=== PATIENT | female | born 1990 | race Caucasian/White ===

== ENCOUNTER 2019-10-11 04:21 | Emergency (ER) | payer OTHER ==
[~2019-10-11] VITALS: Ht 172 cm; Wt 74.3 kg
[~2019-10-11 04:21] MED LIST: HYDROmorphone 2 MG/ML VIAL (DILAUDID) ONE
[2019-10-11] MEDS ORDERED: KETAMINE/NaCl 50 MG/5 ML SYRINGE (ED ONLY) ONE ×2 (04:37→04:51)
[2019-10-11] MEDS ORDERED: MIDAZOLAM 5 MG/5 ML (VERSED) VIAL ONE (04:47)
[2019-10-11] MEDS ORDERED: LIDOCAINE 1% INJ 20 ML 20 ML VIAL ONE (04:47)
[2019-10-11] MEDS ORDERED: HYDROmorphone 2 MG/ML VIAL (DILAUDID) ONE (04:48)
[2019-10-11] MEDS ORDERED: HYDROmorphone 2 MG/ML VIAL (DILAUDID) IV ONE ×3 (04:50→05:55)
[2019-10-11] MEDS ORDERED: KETAMINE HCL 100 MG/ML 5 ML VIAL ONE (05:05)
[2019-10-11] MEDS ORDERED: TETANUS,DIPTH,PERTUSS P/F (BOOSTRIX) 0.5 ML VIAL IM ONE (05:11)
[2019-10-11] MEDS ORDERED: WATER (STERILE) FOR INJECTION 10 ML ONE (05:11)
[2019-10-11] MEDS ORDERED: ceFAZolin INJECTION 1,000 MG ONE (05:11)
[2019-10-11 05:25] LABS: BASOPHILS % (AUTO) 0 % (0-10); EOSINOPHILS # (AUTO) 0.1 10^3/uL (0.0-0.3); EOSINOPHILS % (AUTO) 2 % (0-10); HEMATOCRIT 37 % (35-52); HEMOGLOBIN 12.3 G/DL (11.5-16.0); LYMPHOCYTES # (AUTO) 2.2 X 10^3 (1.0-4.0); LYMPHOCYTES % (AUTO) 29 % (12-44); MEAN CORPUSCULAR HEMOGLOBIN 28 PG (25-34); MEAN CORPUSCULAR HGB CONC 33 G/DL (32-36); MEAN CORPUSCULAR VOLUME 83 FL (80-99); MEAN PLATELET VOLUME 12.3 FL (7.4-10.4); MONOCYTES # (AUTO) 0.5 X 10^3 (0.0-1.0); MONOCYTES % (AUTO) 7 % (0-12); NEUTROPHILS # (AUTO) 4.6 X 10^3 (1.8-7.8); NEUTROPHILS % (AUTO) 62 % (42-75); PLATELET COUNT 219 10^3/uL (130-400); RED CELL DISTRIBUTION WIDTH 13.7 % (10.0-14.5); WHITE BLOOD COUNT 7.4 10^3/uL (4.3-11.0)
[2019-10-11] MEDS ORDERED: LACTATED RINGERS 1,000 ML IV ONE (05:28)
[2019-10-11 05:30] LABS: ALBUMIN 4.5 GM/DL (3.2-4.5); CHLORIDE 109 MMOL/L (98-107); POTASSIUM 3.4 MMOL/L (3.6-5.0)
[2019-10-11 05:31] LABS: SODIUM 140 MMOL/L (135-145)
[2019-10-11 05:33] LABS: GLUCOSE 107 MG/DL (70-105); TOTAL PROTEIN 7.6 GM/DL (6.4-8.2)
[2019-10-11 05:34] LABS: CARBON DIOXIDE 19 MMOL/L (21-32)
[2019-10-11 05:35] LABS: BILIRUBIN,TOTAL 0.3 MG/DL (0.1-1.0)
[2019-10-11 05:36] LABS: ALKALINE PHOSPHATASE 57 U/L (40-136)
[2019-10-11 05:37] LABS: CREATININE SERUM 0.76 MG/DL (0.60-1.30); GFR ESTIMATED > 60
[2019-10-11 05:38] LABS: BUN/CREATININE RATIO 22
[2019-10-11 05:39] LABS: ALANINE AMINOTRANSFERASE 19 U/L (0-55)
--- NOTE | 2019-10-11 06:17 | ED Upper Extremity ---
General Chief Complaint: Trauma-Non Activation Stated Complaint: MULTIPLE FINGER AMPUTATIONS Nursing Triage Note: Pt to [facility] 2 via [facility] from work with trauma to last 3 fingers of left hand. EMS reports c/o pt getting last 3 fingers caught in machinery while working. Dressing applied on arrival. 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 She has a total limitation of the fifth digit in the intermediate phalanx and a near total amputation of the fourth digit intermediate phalanx. The third digit has s everal lacerations and subcutaneous tissue. Bleeding is being controlled with direct pressure by EMS. Patient is in significant amount pain. EMS reports that given 5 of morphine and 100 g of fentanyl. We have an IV and some fluids started. Vital signs are acceptable. Patient was tested last week for COVID-19 and was negative. She was asymptomatic at that time as well as now. She has no significant medical or surgical history. She denies being sexually active. She's not on any control. Allergies and Home Medications Allergies Coded Allergies: No Known Drug Allergies (Unverified , 10/11/19) Home Medications Cephalexin 500 Mg Capsule, 500 MG PO QID Prescribed by: GEORGINA CRUZ on 10/11/19 0702 Hydrocodone/Acetaminophen 1 Each Tablet, 0.5-1 EACH PO Q4H PRN for PAIN-SEVERE (8-10) Prescribed by: GEORGINA CRUZ on 10/11/19 0702 Patient Home Medication List Home Medication List Reviewed: Yes Review of Systems Constitutional: No chills, No diaphoresis EENTM: No ear discharge, No ear pain Respiratory: No cough, No short of breath Cardiovascular: No chest pain, No palpitations Gastrointestinal: No abdominal pain Genitourinary: No discharge, No dysuria : No Control/STD Prophylaxis: None Musculoskeletal: see HPI; No back pain; joint pain Skin: No pruritus, No rash All Other Systems Reviewed Negative Unless Noted: Yes Past Caikkoq-Ldabfl-Xqogkk Hx Patient Social History Alcohol Use: Rarely Uses Recreational Drug Use: No Smoking Status: Never a Smoker 2nd Hand Smoke Exposure: No Recent Foreign Travel: No Contact w/Someone Who Travel: No Recent Infectious Disease Expo: No Recent Hopitalizations: No Seasonal Allergies Seasonal Allergies: No Past Medical History Surgeries: No Respiratory: No Cardiac: No Neurological: No Genitourinary: No Gastrointestinal: No Musculoskeletal: No Endocrine: No HEENT: No Cancer: No Psychosocial: No Integumentary: No Blood Disorders: No Physical Exam Vital Signs Vital Signs - First Documented 10/11/19 10/11/19 04:22 04:36 Temp 37.2 Pulse 127 Resp 22 B/P (MAP) 134/93 (107) Pulse Ox 98 O2 Delivery Room Air O2 Flow Rate 2.00 Capillary Refill : Less Than 3 Seconds Height, Weight, BMI Height: '" Weight: lbs. oz. kg; 25.00 BMI Method: General Appearance: WD/WN, severe distress HEENT: PERRL/EOMI, pharynx normal Neck: full range of motion, supple, normal inspection Cardiovascular: normal peripheral pulses, regular rate, rhythm, no edema Respiratory: lungs clear, normal breath sounds, no respiratory distress, no accessory muscle use Shoulder: normal inspection, non-tender, no evidence of injury, normal ROM Elbow/Forearm: normal inspection, non-tender, no evidence of injury, normal ROM, Bilateral Wrist: Yes normal inspection, Yes non-tender, Yes no evidence of injury, Yes normal ROM Hand: Left (amputation of the fifth digit intermediate phalanx. Amputation near-complete fourth digit intermediate phalanx. Crush injury to her distal fourth digit. Crush injury with multiple lacerations palmar and dorsal third digit with dusky blue coloration and slow capillary refill to the distal portion of the third digit. Second digit with distal tip amputation just up to the fingernail but not involving the nail bed. Second digit laceration approximately 1 x 1 cm round.) Neurologic/Tendon: sensory deficit (decreased sensation to third digit distal phalanx. Pain intact.), other (decreased movement of third digit related to pain or injuries unclear. First and second digit move independently.) Neurologic/Psychiatric: alert, oriented x 3 Skin: cyanosis (third digit left hand intermediate and distal phalanx.) Procedures/Interventions Wound Location: Upper Extremities Other Wound Location Left hand seconds her fifth digits Wound's Depth, Shape: linear (avulsion to the tip of the index finger and amputation middle of the middle phalanx fourth and fifth digit), irregular (lacerations on the third finger), contused tissue, sub Q Wound Explored: no foreign body removed Irrigated w/ Saline (ccs): 1500 Betadine Prep?: Yes (as well as chlorhexidine) Anesthesia: 1% Lidocaine Volume Anesthetic (ccs): 12 Wound Debrided: moderate Suture: Prolene Suture Size: 4-0 Number of Sutures: 27 Layer Closure?: 1 Sterile Dressing Applied?: Yes Progress Wounds were thoroughly inspected cleaned and flushed with sterile saline and then rinsed with chlorhexidine and sterile saline and finally again with sterile saline. Before we started we saturated the wounds in Betadine and let them set for about 10 minutes. Digital blocks were applied using the usual fashion on digits 2 through 5 of the left hand 1% lidocaine without epinephrine. When the patient had good anesthesia we proceeded to close the lacerations of the third digit after carefully flushing each wound with sterile saline. Simple interrupted sutures were used. Using a Rongeur we trimmed back the middle phalanx of the fourth and fifth digit as well as the distal phalanx of the first digit so we could close the skin as best possible while continuously irrigating with sterile saline. Conscious sedation was used for pain control. Patient tolerated procedure well. Progress/Results/Core Measures Results/Orders Lab Results Laboratory Tests Test 10/11/19 04:25 Range/Units White Blood Count 7.4 4.3-11.0 10^3/uL Red Blood Count 4.42 4.35-5.85 10^6/uL Hemoglobin 12.3 11.5-16.0 G/DL Hematocrit 37 35-52 % Mean Corpuscular Volume 83 80-99 FL Mean Corpuscular Hemoglobin 28 25-34 PG Mean Corpuscular Hemoglobin Concent 33 32-36 G/DL Red Cell Distribution Width 13.7 10.0-14.5 % Platelet Count 219 130-400 10^3/uL Mean Platelet Volume 12.3 H 7.4-10.4 FL Neutrophils (%) (Auto) 62 42-75 % Lymphocytes (%) (Auto) 29 12-44 % Monocytes (%) (Auto) 7 0-12 % Eosinophils (%) (Auto) 2 0-10 % Basophils (%) (Auto) 0 0-10 % Neutrophils # (Auto) 4.6 1.8-7.8 X 10^3 Lymphocytes # (Auto) 2.2 1.0-4.0 X 10^3 Monocytes # (Auto) 0.5 0.0-1.0 X 10^3 Eosinophils # (Auto) 0.1 0.0-0.3 10^3/uL Basophils # (Auto) 0.0 0.0-0.1 10^3/uL Sodium Level 140 135-145 MMOL/L Potassium Level 3.4 L 3.6-5.0 MMOL/L Chloride Level 109 H 98-107 MMOL/L Carbon Dioxide Level 19 L 21-32 MMOL/L Anion Gap 12 5-14 MMOL/L Blood Urea Nitrogen 17 7-18 MG/DL Creatinine 0.76 0.60-1.30 MG/DL Estimat Glomerular Filtration Rate > 60 BUN/Creatinine Ratio 22 Glucose Level 107 H 70-105 MG/DL Calcium Level 9.0 8.5-10.1 MG/DL Corrected Calcium 8.6 8.5-10.1 MG/DL Total Bilirubin 0.3 0.1-1.0 MG/DL Aspartate Amino Transf (AST/SGOT) 21 5-34 U/L Alanine Aminotransferase (ALT/SGPT) 19 0-55 U/L Alkaline Phosphatase 57 40-136 U/L Total Protein 7.6 6.4-8.2 GM/DL Albumin 4.5 3.2-4.5 GM/DL Serum Test, Qualitative NEGATIVE NEGATIVE My Orders Orders - GEORGINA CRUZ Ketamine Syringe (Ed Only) (Ketamine Syr (10/11/19 04:37) Hand, Left, 3 Views (10/11/19 ) Midazolam Injection (Versed Injection) (10/11/19 04:47) Lidocaine 1% Inj 20 Ml (Xylocaine 1% Inj (10/11/19 04:47) Hydromorphone Injection (Dilaudid Inject (10/11/19 04:48) Ketamine Syringe (Ed Only) (Ketamine Syr (10/11/19 04:51) Ketamine Injection (Ketalar Injection) (10/11/19 05:05) Cefazolin Injection (Ancef Injection) (10/11/19 05:11) Dipht,Pertuss(Acell),Tet Adult (Boostrix (10/11/19 05:11) Water (Sterile) For Injection (Sterile W (10/11/19 05:11) Cbc With Automated Diff (10/11/19 05:18) Comprehensive Metabolic Panel (10/11/19 05:18) Hcg,Qualitative Serum (10/11/19 05:18) Lactated Ringers (Lr 1000 Ml Iv Solution (10/11/19 05:28) Hydrocodone/Apap 10/325 Tablet (Lortab 1 (10/11/19 06:50) Hydrocodone/Apap 10/325 Tablet (Lortab 1 (10/11/19 07:00) Hydromorphone Injection (Dilaudid Inject (10/11/19 04:50) Hydromorphone Injection (Dilaudid Inject (10/11/19 04:57) Hydromorphone Injection (Dilaudid Inject (10/11/19 05:55) Hydromorphone Injection (Dilaudid Inject (10/11/19 04:21) Vital Signs/I&O 10/11/19 08:25 Pulse 83 Resp 15 B/P (MAP) 109/54 Pulse Ox 100 Blood Pressure Mean: 107 Progress Progress Note : Time: 06:55 Progress Note Labs are largely unremarkable. Patient's beginning to wake up more and having some increasing pain so 10 mg of hydrocodone was ordered by mouth. While sewing up the third digit and even after closing the wounds the distal phalanx still has a dusky color with a prolonged capillary refill. This is no change from its presentation. Patient does have sensation of pain in this finger. Referral to occupational health made. Diagnostic Imaging Diagonstic Imaging: Xray Plain Films/CT/US/NM/MRI: hand (3v) Comments NAME: MATEO DELUCA MED REC#: [id number] PT STATUS: REG ER : 1990 PHYSICIAN: GEORGINA CRUZ MD ADMIT DATE: 10/11/19/ER Draft Date of Exam:10/11/19 HAND, LEFT, 3 VIEWS INDICATION: Crush injury with amputation. FINDINGS: There is a traumatic amputation of the 4th and 5th fingers along the middle phalanx. Distal 5th digit is not present. The 4th digit does remain intact with some soft tissue. The DIP joint and PIP joint appear intact. Remainder of the hand appears normal. IMPRESSION: Traumatic amputation of the 4th and 5th distal fingers as described. Dictated on workstation # [id number] Dict: 10/11/19 0646 Trans: 10/11/19 0647 CV [id number] Interpreted by: BRYAN SIDHU MD Electronically signed by: Reviewed: Reviewed by Me Critical Care Note Critical Care Start Time: 04:20 Stop Time: 06:00 Total Time (minutes) 100 mins Progress Patient presented in significant amount pain despite 5 mg morphine in the 100 mg and also we elected to use Dilaudid 1 mg at a time in addition to 50 mg aliquots of ketamine to control her pain. Finally 2 mg of Versed were sufficient to achieve good conscious sedation, analgesia, and amnesia. Respiratory therapy, warehouse trainer were summonsed. X-ray was summonsed. X-ray of the left hand reviews are being obtained. 0425 with her labs and continued a liter of saline at flush. Called and spoke to Dr. Odonnell orthopedic surgeon on-call and he agreed with plan to remove the nonviable fourth digit portion since the intermediate phalanx was powdered and there is significant evidence of crush injury to the distal finger. This is wrapped in gauze and sent to pathology for gross. After closing the wounds the plan is to follow-up with Dr. Odonnell in the clinic in the next couple days. 0 427 end-tidal CO2 was established showing 44 cm water pressure. 0 428 1 mg of Dilaudid IV was given. 86022 mg of Dilaudid was given. Wounds are being cleaned and prepped. 0442 50 mg of ketamine IV administered. 18567 mg of Versed and 1 mg of Dilaudid IV were given. 0455 50 mg of ketamine were given to complete sedation. Wounds are being sutured. fashion supervisor had to go to the OR to find a Rongeur. 0457 1 mg of Dilaudid was given. 0458 individual digital blocks of digits 2 through 5 on the left hand were administered using 1% lidocaine without epinephrine 12 mL total. 0511 50 mg ketamine was administered. Rongeur Obtained and used to clean up the bone in so that the skin. We reapproximated over the stumps and closed using 4-0 Prolene. 0518 tetanus was administered IM right deltoid 0522 1 g Ancef administered IV. 0529 50 milligrams of ketamine administered IV. 2 mg of Versed administered IV. 0 533 patient had some snoring and her end-tidal CO2 was 44 cm water pressure. Her head was adjusted to open her airway and a nasopharyngeal airway was placed. Liter of saline and completed. Blood pressure was good. A second liter of lactated Ringer's was ran around 200 cc per hour. 0555 1 mg of Dilaudid administered IV. 0557 25 milligrams ketamine administered IV. Vital signs normal with end-tidal CO2 of 49 cm of water pressure. 0630: Patient was beginning to wake up and were going to transition to oral pain medications. IV fluids were discontinued. Nasopharyngeal airway was discontinued. Mom and dad arrived patient gave permission for me to speak to them as well as bring him back so we explained the situation using the language line radio assembler. We also discussed the case with the patient and answered all questions appropriately. Departure Impression Primary Impression: Crushing injury of finger(s) Additional Impressions: Amputation, finger, traumatic Qualified Codes: S68.119A - Complete traumatic metacarpophalangeal amputation of unspecified finger, initial encounter Laceration of finger of left hand without damage to nail Qualified Codes: S61.213A - Laceration without foreign body of left middle finger without damage to nail, initial encounter Disposition: 01 HOME, SELF-CARE Condition: Improved Departure-Patient Inst. Decision time for Depature: 07:15 Referrals: UNKNOWN (PCP) Primary Care Physician VANI ODONNELL MD Patient Instructions: Crush Injury (DC), Amputation of the Finger or Fingertip, Laceration Repair With Stitches (DC) Add. Discharge Instructions: Keep the hand clean with regular soap and water. You may coat the wounds with petroleum jelly or triple antibiotic ointment after cleaning and redressed with gauze dressing at least daily or more frequently for soiling. Keep the hand clean and elevated above the level of your heart to reduce swelling. Ice may be helpful for pain. Ibuprofen 800 mg every 8 hours as necessary for pain. Hydrocodone 10 x 3 25 mg every 4 hours as necessary to control breakthrough pain. Hydrocodone will cause drowsiness as well as constipation. MiraLAX once or twice a day while on hydrocodone will help combat constipation. Call Dr. Odonnell and request follow-up appointment this week for your hand. Cephalexin 4 times a day for the next week to prevent infection in your hand. All discharge instructions reviewed with patient and/or family. Voiced understanding. Scripts Cephalexin (Keflex) 500 Mg Capsule 500 MG PO QID for 7 Days, #28 CAP 0 Refills Prov: GEORGINA CRUZ 10/11/19 Hydrocodone/Acetaminophen (Hydrocodone-Acetamin 10-325 mg) 1 Each Tablet 0.5-1 EACH PO Q4H PRN for PAIN-SEVERE (8-10) for 7 Days, #30 TAB 0 Refills Prov: GEORGINA CRUZ 10/11/19 Copy Copies To 1: VANI ODONNELL MD, TITUS J Oct 11, 2019 06:17
--- NOTE | 2019-10-11 06:28 | NUR ---
Parents to pt bedside, per pt's permission via language line finishing range operator. Pt eyes open at this time, speaks when spoken to.
--- NOTE | 2019-10-11 06:33 | NUR ---
100mcg Fentanyl given en route per EMS 0425-labs obtained 0427-end tidal CO2 44mmHg 0428-1mg dilaudid 0432-1mg dilaudid 0442-50mg ketamine 0453-2mg versed 0454-1mg dilaudid 0455-50mg Ketamine 0457- 1mg dilaudid 0458-1% Lidocaine 0511- 50mg Ketamine 0518- tetanus R deltoid 0522- 1g Ancef 0529- 50mg Ketamine 1000NS completed 0530-LR administered 250ml/hr 0531- 2mg Versed 0533- NPA in Rt nostril, end tidal 44mmHg 0555- 1 mg diludid 0557- 25mg Ketamine, end tidal 49mmHg 27 5.o prolene sutures placed 0600 4th digit sent to pathology
--- NOTE | 2019-10-11 06:33 | NUR ---
Patient also receieved 5mg morphine and 1 L NS per ems waiter/waitress captain.
--- NOTE | 2019-10-11 06:45 | NUR ---
Patient is resting comfortably at this time. Parents are at the bedside with the patient,
--- NOTE | 2019-10-11 06:48 | Diagnostic Imaging Report ---
INDICATION: Crush injury with amputation. FINDINGS: There is a traumatic amputation of the 4th and 5th fingers along the middle phalanx. Distal 5th digit is not present. The 4th digit does remain intact with some soft tissue. The DIP joint and PIP joint appear intact. Remainder of the hand appears normal. IMPRESSION: Traumatic amputation of the 4th and 5th distal fingers as described. Dictated by: Dictated on workstation # [id number]
[2019-10-11] MEDS ORDERED: HYDROcodone/APAP 10 MG/325 MG (LORTAB) TAB PO ONE ×2 (06:50→07:00)
[2019-10-11] MEDS ORDERED: HYDR-3820 PO (07:02)
[2019-10-11] MEDS ORDERED: CEPH-507 PO (07:02)
--- NOTE | 2019-10-11 07:15 | NUR ---
PT RESTING IN BED W EYES CLOSED, PARENTS AT BED SIDE, L HAND WRAPPED IN KERLEX. IVF CONT. SPOKE W PARENTS INTRODUCED SELF.
--- NOTE | 2019-10-11 07:50 | NUR ---
PT AWAKE GIVEN SMALL SNACK. IV FLUIDS CONT
[2019-10-11 08:25] VITALS: BP 109/54
--- NOTE | 2019-10-11 08:25 | NUR ---
PT UP IN W/C PT TEARFUL, WEAK, INSTRUCTIONS GIVEN TO PATIENT AND PARENTS, MOTHER INSTRUCTED HOW TO CHANGE DRESSINGS. INSTRUCTED ON PAIN MEDS AND TAKING ANTIBIOTICS 4 X DAY UNTIL GONE. INST TO CALL FOR FOLLOW UP APPT TODAY FOR LATER IN WEEK. DRESSING ON L HAND REINFORCED SOME OOZING NOTED ON LATERAL SIDE OF HAND. INSTRUCTED ON KEEPING L HAND ELEVATED ABOVE LEVEL OF HEART FOR PAIN AND SWELLING. PT TAKEN TO [facility] BY ED STAFF FOR UA
== END 2019-10-11 08:25 | disposition home or self-care (01) ==
LOC: ER 04:25
DX: S68.117A Complete traumatic metacarpophalangeal amputation of left little finger, initial encounter (principal); S68.115A Complete traumatic metacarpophalangeal amputation of left ring finger, initial encounter; S68.121A Partial traumatic metacarpophalangeal amputation of left index finger, initial encounter; S61.213A Laceration without foreign body of left middle finger without damage to nail, initial encounter; W31.9XXA Contact with unspecified machinery, initial encounter
CPT/HCPCS: 11010; 36415; 64450; 73130; 80053; 84703; 85025; 90471; 90715; 93041; 94760; 96361; 96374; 96375; 96376; 99291; 99292